=== PATIENT | female | born 1945 | race American Indian/Alaskan Native ===

== ENCOUNTER 2021-06-06 15:38 | Emergency (ER) | payer MEDICARE ==
[2021-06-06] MEDS ORDERED: SODIUM CHLORIDE 0.9% 1000 ML 1,000 ML IV ONE (16:42)
[2021-06-06] MEDS ORDERED: ONDANSETRON 4 MG/2 ML INJ IV ONE (16:42)
--- NOTE | 2021-06-06 16:50 | Emergency Department Report ---
HPI - General Chief Complaint: Nausea/Vomiting/Diarrhea Time Seen by Provider: 06/06/21 16:16 - HPI HPI: 76-year-old -[place] female presents to the emergency department with complaint of a 3-day history of nausea with vomiting. She also complains of a mixed dry and productive cough that has been going on for the past 5 to 6 days. When the patient has coughing fits she begins to have some back pain. The patient vomits with any liquids or solids. At the time of my examination she complains of generalized weakness. She denies any fever, chest pain, shortness of breath, diarrhea, constipation. Patient says that she had a recent negative COVID-19 test. She is vaccinated but has not yet received her booster. 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 She denies any tobacco or illicit drug use. No recent travel or sick contacts at home. ED Past Medical Hx - Past Medical History Hx Hypertension: Yes Hx Diabetes: Yes Hx GERD: Yes Hx Arthritis: Yes Hx HIV: No Additional medical history: Neuropathy. CAD - Surgical History Hx Coronary Stent: Yes (x 2) Hx Cholecystectomy: Yes Additional Surgical History: hysterectomy - Social History Smoking Status: Former Smoker - Medications Home Medications: Home Medications Medication Instructions Recorded Confirmed Last Taken Type Valsartan [Diovan] 80 mg PO BID 12/18/13 04/05/18 12/17/13 History Atorvastatin Calcium 80 mg PO DAILY 04/05/18 04/05/18 Unknown History Duloxetine HCl [DULoxetine] 60 mg PO DAILY 04/05/18 04/05/18 Unknown History Metformin HCl [metFORMIN] 1,000 mg PO DAILY 04/05/18 04/05/18 Unknown History cephALEXin [Keflex] 500 mg PO Q8HR 04/05/18 04/05/18 Unknown History AtorvaSTATin [Lipitor] 80 mg PO QHS tablet 04/07/18 Unknown Rx Baclofen 5 mg PO Q8H #30 tablet 04/07/18 Unknown Rx DULoxetine [Cymbalta] 60 mg PO QDAY capsule 04/07/18 Unknown Rx Pantoprazole [Protonix TAB] 40 mg PO QDAY tablet 04/07/18 Unknown Rx Pregabalin 75 mg PO BID capsule 04/07/18 Unknown Rx carvediloL [Coreg] 6.25 mg PO BID tablet 04/07/18 Unknown Rx metFORMIN [Glucophage] 1,000 mg PO QDAY tablet 04/07/18 Unknown Rx Benzonatate [Tessalon Perles] 100 mg PO Q8HR PRN #15 capsule 06/06/21 Unknown Rx Ondansetron [Zofran Odt] 4 mg PO Q8HR PRN #12 tab.rapdis 06/06/21 Unknown Rx ED Review of Systems ROS: Stated complaint: NAUSEA Other details as noted in HPI Comment: All other systems reviewed and negative Constitutional: weakness. denies: chills, fever Eyes: denies: eye pain, vision change ENT: denies: ear pain, throat pain Respiratory: cough. denies: shortness of breath Cardiovascular: denies: chest pain, palpitations Gastrointestinal: nausea, vomiting. denies: diarrhea, constipation Genitourinary: denies: dysuria, discharge Musculoskeletal: back pain. denies: arthralgia Skin: denies: rash, lesions Neurological: numbness. denies: headache Physical Exam - Physical Exam Vital Signs: Vital Signs 06/06/21 15:45 Temperature 98.2 F Pulse Rate 86 Respiratory 16 Rate Blood Pressure 110/76 [Right] O2 Sat by Pulse 99 Oximetry Physical Exam: GENERAL: The patient is well-developed well-nourished. HENT: Normocephalic. Atraumatic. Patient has moist mucous membranes. EYES: Extraocular motions are intact. NECK: Supple. Trachea is midline. CHEST/LUNGS: Clear to auscultation. There is no respiratory distress noted. HEART/CARDIOVASCULAR: Regular. There is no tachycardia. There is no murmur. ABDOMEN: Abdomen is soft mild upper abdominal tenderness to palpation. No guarding. Patient has normal bowel sounds. There is no abdominal distention. SKIN: Skin is warm and dry. NEURO: The patient is awake, alert, and oriented. The patient is cooperative. The patient has no focal neurologic deficits. Normal speech. MUSCULOSKELETAL: There is no tenderness or deformity. There is no limitation range of motion. ED Course Vital Signs 06/06/21 15:45 Temperature 98.2 F Pulse Rate 86 Respiratory 16 Rate Blood Pressure 110/76 [Right] O2 Sat by Pulse 99 Oximetry ED Medical Decision Making - Lab Data Result diagrams: 06/06/21 16:57 06/06/21 16:57 Lab Results 06/06/21 06/06/21 06/06/21 Range/Units 16:57 16:57 16:57 WBC 4.4 L (4.5-11.0) K/mm3 RBC 4.03 (3.65-5.03) M/mm3 Hgb 12.4 (10.1-14.3) gm/dl Hct 38.7 (30.3-42.9) % MCV 96 (79-97) fl MCH 31 (28-32) pg MCHC 32 (30-34) % RDW 14.4 (13.2-15.2) % Plt Count 242 (140-440) K/mm3 Lymph % (Auto) 37.9 H (13.4-35.0) % [place] % (Auto) 7.6 H (0.0-7.3) % Eos % (Auto) 1.9 (0.0-4.3) % Baso % (Auto) 1.0 (0.0-1.8) % Lymph # (Auto) 1.7 (1.2-5.4) K/mm3 [place] # (Auto) 0.3 (0.0-0.8) K/mm3 Eos # (Auto) 0.1 (0.0-0.4) K/mm3 Baso # (Auto) 0.0 (0.0-0.1) K/mm3 Seg Neutrophils % 51.6 (40.0-70.0) % Seg Neutrophils # 2.3 (1.8-7.7) K/mm3 Sodium 139 (137-145) mmol/L Potassium 4.4 (3.6-5.0) mmol/L Chloride 101.5 (98-107) mmol/L Carbon Dioxide 24 (22-30) mmol/L Anion Gap 18 mmol/L BUN 19 H (7-17) mg/dL Creatinine 1.1 (0.6-1.2) mg/dL Estimated GFR 59 ml/min BUN/Creatinine Ratio 17 % Glucose 166 H (65-100) mg/dL Calcium 9.6 (8.4-10.2) mg/dL Total Bilirubin 0.30 (0.1-1.2) mg/dL AST 19 (5-40) units/L ALT 10 (7-56) units/L Alkaline Phosphatase 67 (35-129) units/L Troponin T < 0.010 (0.00-0.029) ng/mL Total Protein 7.9 (6.3-8.2) g/dL Albumin 3.9 (3.9-5) g/dL Albumin/Globulin Ratio 1.0 % Lipase 22 (13-60) units/L - EKG Data -: EKG Interpreted by Me EKG shows normal: sinus rhythm, axis (Right axis deviation), intervals (Slightly prolonged MO interval), QRS complexes (Right bundle branch block Q waves to the anterolateral leads), ST-T waves Rate: normal - EKG Data When compared to previous EKG there are: no significant change Interpretation: unchanged when compared t (04/05/18) - Radiology Data Radiology results: image reviewed interpreted by me: Chest x-ray does not show any acute process. There are no pleural effusions, obvious pneumonia and there is no pneumothorax. No widened mediastinum. Abdominal x-ray shows nonspecific nonobstructive bowel gas. No free air. - Medical Decision Making The patient's main complaint is a 3-day history of nausea with vomiting. She also says that she has had some intermittent coughing over the past 5 days and when she has the cough it elicits some back pain. On examination the patient has normal sounding heart and lungs to auscultation and does not appear in any respiratory or acute distress. There is some upper abdominal tenderness to palpation but it is mild and there is no guarding. The abdomen is soft, nondistended and nontoxic in appearance. Chest x-ray does not show any pneumonia, pleural effusions, pneumothorax, widened mediastinum, or any other acute process. Abdominal x-ray shows nonspecific nonobstructive bowel gas, and no free air. Labs have been mostly unremarkable including CBC, metabolic panel, lipase, negative troponin. The patient was given some IV fluid resuscitation and a dose of IV antiemetic. Upon reevaluation she is feeling greatly improved. Able to pass an oral challenge. Vital signs have been reassuring including being afebrile. For all these reasons she appears safe for discharge home at this time. She has been given a prescription for an antiemetic and antitussive medication. She has an appointment with her primary care physician this coming Monday. She will return to the ER with any worsening of her symptoms or with any acute distress. Critical Care Time: No Critical care attestation.: If time is entered above; I have spent that time in minutes in the direct care of this critically ill patient, excluding procedure time. ED Disposition Clinical Impression: Cough Nausea & vomiting Qualifiers: Vomiting type: unspecified Vomiting Intractability: non-intractable Qualified Code(s): R11.2 - Nausea with vomiting, unspecified Disposition: 01 HOME / SELF CARE / HOMELESS Is pt being admited?: No Condition: Stable Additional Instructions: Please follow-up with your primary care physician as previously scheduled. Increase your oral rehydration. Return to the emergency department with any worsening of your symptoms, new or concerning symptoms not addressed during this current emergency department visit, or with any acute distress. Prescriptions: Benzonatate [Tessalon Perles] 100 mg PO Q8HR PRN #15 capsule PRN Reason: Cough Ondansetron [Zofran Odt] 4 mg PO Q8HR PRN #12 tab.rapdis PRN Reason: Nausea Referrals: RIO BUTCHER MD [Staff Physician] - 2-3 Days Time of Disposition: 19:31
[2021-06-06 17:22] LABS: Eosinophils # (Auto) 0.1 K/mm3 (0.0-0.4); Eosinophils % (Auto) 1.9 % (0.0-4.3); Hematocrit 38.7 % (30.3-42.9); Hemoglobin 12.4 gm/dl (10.1-14.3); Lymphocytes # (Auto) 1.7 K/mm3 (1.2-5.4); Lymphocytes % (Auto) 37.9 % (13.4-35.0); Mean Corpuscular HGB Conc 32 % (30-34); Mean Corpuscular Volume 96 fl (79-97); Monocytes # (Auto) 0.3 K/mm3 (0.0-0.8); Monocytes % (Auto) 7.6 % (0.0-7.3); Platelet Count 242 K/mm3 (140-440); Red Blood Count 4.03 M/mm3 (3.65-5.03); Red Cell Distribution Width 14.4 % (13.2-15.2)
[2021-06-06 17:36] LABS: Calcium 9.6 mg/dL (8.4-10.2)
[2021-06-06 17:37] LABS: Albumin 3.9 g/dL (3.9-5)
--- NOTE | 2021-06-06 18:04 | XRay Report ---
ABDOMEN 4 VIEW(S) INDICATION / CLINICAL INFORMATION: Abd pain, N/V. COMPARISON: None available. FINDINGS: TUBES / LINES: There is a biliary stent right of midline in the right upper quadrant. BOWEL GAS PATTERN: Moderate colonic stool burden is present with nonobstructive pattern. FREE AIR / EXTRALUMINAL GAS: None seen. ADDITIONAL FINDINGS: No significant additional findings. IMPRESSION: 1. Moderate colonic stool burden can be seen with constipation. Signer Name: Juan Olson MD Signed: 06/06/2021 5:59 PM Workstation Name: [id number]
[2021-06-06 23:12] VITALS: BP 135/76
--- NOTE | 2021-06-07 08:57 | Electrocardiograph Report ---
[facility] Test Date: 2021-06-06 Test Time: 17:14:22 Pat Name: FAVIAN ORR Department: Room: Gender: F [employer] Wra[employer] Examiner: JACQUIE : 1945 Requested By: CARLOS JOHN Order Number: [id number] Reading MD: Thanh Davis Measurements Intervals [place] Rate: 88 P: 41 IA: 202 QRS: 0 QRSD: 141 T: 1 QT: 411 QTc: 498 Interpretive Statements Sinus rhythm Right bundle branch block Anterolateral infarct, old No previous ECG available for comparison Electronically Signed On 06-07-2021 8:57:35 EST by Thanh Davis
== END 2021-06-06 22:20 | disposition home or self-care (01) ==
LOC: ED 15:38
DX: R05.9 Cough, unspecified (principal); R11.2 Nausea with vomiting, unspecified; E11.9 Type 2 diabetes mellitus without complications; I10 Essential (primary) hypertension; I25.10 Atherosclerotic heart disease of native coronary artery without angina pectoris; Z87.891 Personal history of nicotine dependence; Z90.49 Acquired absence of other specified parts of digestive tract
CPT/HCPCS: 36415; 74022; 80053; 83690; 84484; 85025; 93005; 96361; 96374; 99284; J2405; J7030; Q0162